=== PATIENT | male | born 1975 | race Caucasian/White ===

== ENCOUNTER 2022-09-10 12:01 | Outpatient (CLI) | payer MEDICARE | END 2022-09-10 12:02 | disposition home or self-care (01) | LOC: CSHCP 12:01 | PROVIDERS: ATTEND Internal Medicine | DX: J45.40 Moderate persistent asthma, uncomplicated (principal); R94.2 Abnormal results of pulmonary function studies | CPT/HCPCS: 94010; 94726; 94729; 94760 ==

== ENCOUNTER 2023-10-02 09:00 | Outpatient (CLI) | payer MEDICARE | END 2023-10-02 09:01 | disposition home or self-care (01) | LOC: CSHCT 09:00 | PROVIDERS: ATTEND Internal Medicine | DX: J44.9 Chronic obstructive pulmonary disease, unspecified (principal); R91.8 Other nonspecific abnormal finding of lung field; N28.9 Disorder of kidney and ureter, unspecified; M41.84 Other forms of scoliosis, thoracic region; R94.2 Abnormal results of pulmonary function studies | CPT/HCPCS: 71250; 94060; 94664; 94726; 94729; 94760 ==